=== PATIENT | female | born 1945 | race Caucasian/White ===

== ENCOUNTER → 2023-09-16 08:47 | Outpatient (REF) | payer OTHER, SELFPAY | LOC: RAD 08:47 | PROVIDERS: ATTENDING PHYSICIAN Surgery Vascular Surgery; FAMILY PHYSICIAN Family Medicine | DX: I70.1 Atherosclerosis of renal artery (principal) | CPT/HCPCS: 93975 ==

== ENCOUNTER → 2023-10-21 09:01 | Outpatient (REF) | payer OTHER, SELFPAY | LOC: DHCBC HW 09:01 | PROVIDERS: ATTENDING PHYSICIAN Internal Medicine Cardiovascular Disease; FAMILY PHYSICIAN Family Medicine | DX: I08.0 Rheumatic disorders of both mitral and aortic valves (principal) | CPT/HCPCS: 93306 ==

== ENCOUNTER → 2023-11-16 14:04 | Outpatient (REF) | payer OTHER, SELFPAY | LOC: HWRAD 14:04 | PROVIDERS: ATTENDING PHYSICIAN Family Medicine | DX: R06.09 Other forms of dyspnea (principal) | CPT/HCPCS: 71046 ==

== ENCOUNTER → 2024-09-27 08:36 | Outpatient (REF) | payer OTHER, SELFPAY | LOC: RAD 08:36 | PROVIDERS: ATTENDING PHYSICIAN Registered Nurse | DX: I70.1 Atherosclerosis of renal artery (principal) | CPT/HCPCS: 93975 ==